=== PATIENT | male | born 1945 | race Caucasian/White ===

== ENCOUNTER 2022-01-24 09:56 | Day surgery (SDC) | payer MEDICARE, OTHER ==
[2022-01-21 10:12] VITALS: BMI 31.2
[2022-01-24 10:47] LABS: Basophils % (A) 0 %; Eosinophils # (A) 0.1 k/uL (0-0.7); Eosinophils % (A) 1 %; HCT 48.4 % (39.0-53.0); HGB 16.7 gm/dL (13.0-17.5); Lymphocytes # (A) 1.7 k/uL (1.0-4.8); Lymphocytes % (A) 33 %; MCH 33.2 pg (25.0-35.0); MCHC 34.6 g/dL (31.0-37.0); Mean Platelet Volume 7.5; Monocytes # (A) 0.4 k/uL (0-1.0); Monocytes % (A) 7 %; Neutrophils # (A) 2.8 k/uL (1.3-7.7); Neutrophils % (A) 55 %; Platelet Count 145 k/uL (150-450); RBC 5.04 m/uL (4.30-5.90); RDW 13.9 % (11.5-15.5); WBC 5.1 k/uL (3.8-10.6)
[2022-01-24 11:49] LABS: INR 3.6 (<1.2)
[2022-01-24 11:50] LABS: Calcium 8.6 mg/dL (8.4-10.2); Potassium 4.5 mmol/L (3.5-5.1)
[2022-01-24] MEDS ORDERED: LIDOCAINE 2% INJ 20 MG/ML (2 ML VIAL) ONE (11:53)
[2022-01-24] MEDS ORDERED: ATROPINE SULFATE 0.1 MG/ML 10ML SYRINGE ONE (11:53)
[2022-01-24] MEDS ORDERED: fentaNYL (PF) 50 MCG/ML 2 ML AMP ONE (11:53)
[2022-01-24] MEDS ORDERED: SUCCINYLCHOLINE CHLORIDE VIAL 200 MG/10 ML VIAL IV ONE (11:53)
[2022-01-24] MEDS ORDERED: HEPARIN SODIUM,PORCINE 10,000 UNIT/ML 1 ML VIAL ONE (11:53)
[2022-01-24] MEDS ORDERED: PROPOFOL 10 MG/ML 20 ML VIAL IV ONE (11:53)
[2022-01-24 11:59] LABS: Prothrombin Time 36.3 sec (9.0-12.0)
[2022-01-24] MEDS ORDERED: SODIUM CHLORIDE 0.9% 1,000 ML IV SCH ×2 (11:59→22:00)
[2022-01-24] MEDS ORDERED: IV FLUID CONTINUATION 1,000 ML IV ONE (12:17)
[2022-01-24] MEDS ORDERED: HEPARIN SOD,PORK IN 0.45% NACL 25,000 UNIT in 0.45% NACL 1 250ML.BAG IV ONE (12:20)
--- NOTE | 2022-01-24 12:25 | P.HPCAR ---
History of Present Illness This is Dr. Cortes dictating an H/P on this patient The patient was interviewed and examined IMPRESSION / ASSESSMENT: Persistent atrial fibrillation, symptomatic Failed multiple cardioversions and flecainide Underlying sick sinus syndrome first-degree AV block and intolerance to beta blockers Hypertension Today his creatinine is 1.0 PLAN: A. fib ablation with pulmonary vein isolation and left atrial roof line Continue anticoagulation Back down on flecainide 100 mg twice daily HPI Patient continues to have atrial fibrillation. He's had a few for 25 years Initially these episodes of be triggered by exercise He has a history of hypertension for 3 years but is well controlled He complains of palpitations during atrial fibrillation He has posterior mitral prolapse but with normal left atrial size normal LV function Mrs. this does not show any evidence for atrial fibrillation He is failed flecainide 115 g twice daily He has underlying sick sinus syndrome and intolerance to beta blockers ROS: No fever chills or rigors, no cough, phlegm or expectoration, no nausea, vomiting or diarrhea, no hematuria, dysuria, no musculoskeletal complaints, no strokes or seizures, no skin lesions. EXAMINATION: REVIEW OF LABS, ECG & MEDICAL DATA sodium 140 potassium 4.5 BUN 18 and creatinine 1.0 White count 5.1 hematocrit 48 Platelet count 145,000 INR 3.6 Past Medical History Past Medical History: Atrial Fibrillation, Cancer, Hypertension, Prostate Disorder, Sleep Apnea/CPAP/BIPAP Additional Past Medical History / Comment(s): BASAL CELL SKIN CANCER, NEW DIAGNOSIS OF SLEEP APNEA-WAITING FOR MACHINE., SEE CARDIOLOGY H & P. History of Any Multi-Drug Resistant Organisms: None Reported Past Surgical History: Prostate Surgery Additional Past Surgical History / Comment(s): TURP, BASAL CELL CANCER X2, CARDIOVERSION X5. Past Anesthesia/Blood Transfusion Reactions: No Reported Reaction Past Psychological History: No Psychological Hx Reported Smoking Status: Never smoker Past Alcohol Use History: Occasional Past Drug Use History: None Reported - Past Family History Father Family Medical History: AFIB Additional Family Medical History / Comment(s): PACEMAKER Mother Family Medical History: AFIB Results 01/24/22 10:28 01/24/22 11:15 Coagulation 01/24/22 Range/Units 11:15 PT 36.3 H (9.0-12.0) sec CBC 01/24/22 Range/Units 10:28 WBC 5.1 (3.8-10.6) k/uL RBC 5.04 (4.30-5.90) m/uL Hgb 16.7 (13.0-17.5) gm/dL Hct 48.4 (39.0-53.0) % Plt Count 145 L (150-450) k/uL Comprehensive Metabolic Panel 01/24/22 Range/Units 11:15 Sodium 140 (137-145) mmol/L Potassium 4.5 (3.5-5.1) mmol/L Chloride 110 H (98-107) mmol/L Carbon Dioxide 22 (22-30) mmol/L BUN 18 (9-20) mg/dL Creatinine 0.99 (0.66-1.25) mg/dL Glucose 101 H (74-99) mg/dL Calcium 8.6 (8.4-10.2) mg/dL Current Medications Generic Name Dose Route Start Last Admin Trade Name Freq PRN Reason Stop Dose Admin Sodium Chloride 1,000 mls @ 20 mls/hr 01/24/22 11:59 Saline 0.9% IV 02/23/22 12:00 .Q24H JOSE 01/24/22 10:28 01/24/22 11:15
[2022-01-24] MEDS ORDERED: LIDOCAINE 1% PF 10 MG/ML (5 ML AMP) SQ ONE (12:38)
[2022-01-24] MEDS ORDERED: IOPAMIDOL-370 100ML BTL INJ ONE (14:17)
[2022-01-24] MEDS ORDERED: ACETAMINOPHEN TAB 325 MG TAB PO PRN (14:46)
--- NOTE | 2022-01-24 15:02 | P.PRLE ---
RE: DeepaliNicko RE: WhitkrishnaNicko Dear Mckinley Maharaj underwent an A. fib ablation with pulmonary vein isolation of all 4 pulmonary veins as well as linear ablation of the LA roof. His transthoracic 2-D echo suggested a fairly normal size left atrium but intracardiac echo revealed an enlarged left atrium. The left atrial dimension from the fossa ovalis to the left pulmonary veins measures at around 58.6 mm On flecainide, he had relatively organized atrial activity but with a very prolonged HV interval of 90 ms At the end of the procedure he required electrical cardioversion to bring him back into normal rhythm He was quite bradycardic postprocedure His creatinine was 0.99 At this time I would recommend #1 continuation of anticoagulation. His INR today was 3.6 but he had no bleeding issues through the procedure #2 Discontinuation of flecainide completely #3 discontinuation of beta blockers #4 continuation of amlodipine He will see you next week for PT/INR check and a follow-up Holter monitor If in the future (beyond 3-4 months), he has recurrence of atrial fibrillation then extrapulmonary foci of AF will be sought The other alternative is to treat him with dofetilide since his creatinine is in the normal range I would observe him for the next 3-4 months Thank you for entrusting me with the care of the patient Warm regards Sincerely Pillo Cortes
--- NOTE | 2022-01-24 15:15 | P.EPPROC ---
- EP Procedure Note Electrophysiology Procedure Note: PROCEDURE A. fib ablation DIAGNOSIS Persistent Atrial fibrillation, symptomatic, refractory to therapy RESULT No left atrial appendage mass seen on intracardiac echo, Thick Fossa ovalis enlarged left atrium, LA dimension from fossa ovalis to left-sided veins was 58.6 mm Successful A. fib ablation/pulmonary vein isolation of all veins using cryo- ablation Successful left atrial roof ablation, linear Complete entrance block in all 4 veins confirmed No evidence for phrenic nerve injury Esophageal deflection YES Electrical cardioversion with a synchronized shock across the chest Lung postconversion pauses and sinus bradycardia, on flecainide and atenolol PROCEDURE DETAILS Patient was brought to the EP lab in a fasting state after obtaining written informed consent. Procedure performed under general anesthesia Esophagus was intubated. Esophageal temperature monitoring with circa catheter. Esophageal deflection with an endoscope to avoid hypothermia of the esophagus. After initial muscle relaxant use, muscle relaxants were not given thereafter in order to assess phrenic nerve during procedure. Patient prepped and draped as per protocol Cryo ablation-set up with standard preparation of the cryoablation tools done. Femoral Venous access obtained on the right and left groins and sheaths placed Diagnostic catheters for the high right atrium, phrenic nerve stimulation and pacing, His bundle, coronary sinus placed Intracardiac echo catheter placed. Long sheath placed in the right atrium Left and right transseptal catheterization performed under intracardiac echo guidance. Intravenous heparin with aCT above 300 Later, catheter positioning and balloon positioning in the left atrium and pulmonary veins, under intracardiac echo guidance Diagnostic EP study with coronary sinus pacing and recording Baseline measurements: Patient was in A. fib with a started study. HV interval 91 ms. In sinus rhythm AH interval 125 ms Coronary sinus catheter revealed a relatively organized atrial fibrillation on flecainide 150 g twice daily Transseptal catheterization performed RA pressure 14/8/11 LA pressure 17/9/12 Transseptal catheterization performed with standard sheath. The fossa ovalis was quite thick. A transseptal needle was used. However passage of a standard 8.5 mm sheath/dilated complex was difficult Serial dilation was performed Then over an advantage via the prior sheath was placed in the left atrium The cryoablation sheath was then placed with an over the wire exchange without any acute complications. The cryoablation balloon was placed in the office of each pulmonary vein and all 4 pulmonary veins were isolated. IV dye was injected to confirm occlusion. Goal: achieve complete occlusion of the pulmonary vein, achieve -30 degrees C at 30 seconds and achieve -40 degrees C at 60 seconds and a time to effect of less than 60 seconds. If not, the balloon was repositioned to obtain this result After completion of Cryoblation with durations from 180-240 seconds, entrance block was confirmed with the Attain circular catheter in a roving fashion around the antrum of the pulmonary veins Large left superior pulmonary vein that required segmental isolation with multiple lesions Phrenic nerve pacing was performed from the SVC, right innominate vein area and diaphragm voltage was monitored. Diaphragmatic contractions were also monitored manually for strength of contraction. At the end of the procedure the Achieve catheter was once again used to check for entrance block Phrenic nerve stimulation was performed to confirm diaphragmatic stimulation the end of the procedure The patient remained in organized atrial fibrillation despite complete antral isolation of the pulmonary veins and the left atrial roof line Electrical cardioversion was performed He was quite bradycardic post cardioversion and of the lung postconversion pause IV atropine was infused for a full 1 mg He was observed for some time before extubation Post extubation his heart rate was in the high 40s, so Cine fluoroscopy was performed at the very end of the procedure to confirm movement of both diaphragms with inspiration and expiration At the end of the procedure the patient was extubated Venous sheaths were removed and hemostasis assured with a closure device PROCEDURES PERFORMED Diagnostic EP study CS pacing and recording Left and right transseptal catheterization Catheter the mapping of the tachycardia Intracardiac echocardiography Pulmonary vein isolation with transseptal and comprehensive EPS, 11273 Drug infusion, +[id number] Left atrial roof line, +[id number] Electrical cardioversion with a synchronized shock across the chest [id number]
--- NOTE | 2022-01-24 15:18 | P.PCN ---
Preoperative Diagnosis: Extended procedure duration Transseptal catheterization was difficult Crossing the fossa ovalis difficult This is a thick fossa ovalis that required repeated dilation with multiple catheters and sheaths The right superior pulmonary vein was very large and subsegmental isolation have to be performed at the antral level to complete the isolation process The above 2 along with a dilated left atrium of at least 5.8 mm resulted in an extended procedure duration
[2022-01-24 17:01] VITALS: RESP 18
[2022-01-24] MEDS ORDERED: ATROPINE SULFATE 0.1 MG/ML 10ML SYRINGE IV STA ×2 (17:56→21:48)
[2022-01-24] MEDS ORDERED: ACETAMINOPHEN IV (For NPO) 1,000 MG in EMPTY BAG 1 BAG IVPB ONE (18:00)
[2022-01-24] MEDS ORDERED: WARFARIN 2.5 MG TAB PO ONE (18:00)
[2022-01-24] MEDS ORDERED: DOPamine DRIP 800 MG in DEXTROSE/WATER 1 250ML.BAG IV SCH (18:30)
[2022-01-24] MEDS ORDERED: DEXTROSE/WATER 1 250ML.BAG with DOPamine DRIP 800 MG IV SCH (21:00)
[2022-01-24] MEDS ORDERED: SODIUM CHLORIDE 0.9% 500 ML 250 ML IV ONE (21:48)
[2022-01-25] MEDS ORDERED: ATORVASTATIN 80 MG TAB PO SCH (09:00)
[2022-01-25] MEDS ORDERED: amLODIPine 5 MG TAB PO SCH (09:00)
[2022-01-25 09:16] LABS: INR 4.1 (<1.2); Prothrombin Time 40.8 sec (9.0-12.0)
[2022-01-25 10:38] VITALS: BP 121/60; PULSE 62; TEMP 98.1
--- NOTE | 2022-01-25 15:22 | P.DS ---
Providers Attending physician: Pillo Cortes Primary care physician: Enio Cobb Assessment: Patient is doing fairly well No chest discomfort dizziness lightheadedness or palpitations Yesterday after his A. fib ablation he was in sinus bradycardia in the mid 30s with no symptoms Blood pressure was normal We tried to give him very low dose dopamine of 2 mics but he couldn't tolerate it and this was discontinued He did very well thereafter and his heart rates improved Overnight he was having short paroxysms of atrial tachycardia This morning his twelve-lead EKG shows a very slow atrial tachycardia with an atrial cycle length of about 500 ms with grouped beating Blood pressure 130/68 mmHg pulse rate in the 60s to 80s afebrile Breath sounds are equal bilaterally no rhonchi no crackles Heart sounds irregular with normal no murmurs. Impression Persistent atrial fibrillation status post antral isolation of the pulmonary veins as well as linear ablation in the left atrial roof Status post electrical cardioversion Intracardiac echo revealed a left atrial dimension of 58.6 mm HV interval was prolonged at 91 ms on flecainide 150 mg twice daily Postconversion pause and severe bradycardia but minimally symptomatic Improvement in heart rate subsequently and paroxysms of atrial tachycardia INR of 3.6 and today the INR is 4.1, hemoglobin stable Creatinine 0.99, potassium normal at 4.5 Suggest Discontinue beta blockers Avoid flecainide given the prolongation of the HV interval Take Coumadin 10 mg by mouth daily for 5 days a week and 5 mg on Mondays and check INR at Dr. Cobb's office within one week Keep INR around 2.5-3 post ablation I expect that he will have bursts of atrial tachycardia with a fairly controlled ventricular response for the next 6-12 weeks I would not recommend any atrial tachycardia ablation for the next 3 months If needed electrical cardioversion may be performed The only antiarrhythmic drug that I would recommend would be dofetilide This would not result in any sinus bradycardia normal did have any effect on the HV interval If he continues to have recurrent slow atrial tachycardia beyond 2-3 months then an atrial tachycardia ablation should be considered thereafter Conservative treatment until then Follow-up with Dr. Avila and Dr. Cobb Patient Condition at Discharge: Stable Plan - Discharge Summary Discharge Rx Participant: No New Discharge Prescriptions: New Warfarin [Coumadin] 5 mg PO DAILY 30 Days #10 tab Warfarin [Coumadin] 10 mg PO DAILY 30 Days #30 tab Discontinued Warfarin [Coumadin] 10 mg PO DAILY atenoloL [Tenormin] 25 mg PO DAILY Flecainide Acetate [Tambocor] 150 mg PO BID No Action Ubidecarenone [Co Q-10] 200 mg PO DAILY Simvastatin [Zocor] 40 mg PO DAILY Multivit-Min/FA/Lycopen/Lutein [Centrum Silver Men Tablet] 1 each PO DAILY Glucosamine Sulfate 1,500 mg PO DAILY Cyanocobalamin (Vitamin B-12) [Vitamin B-12] 2,500 mcg PO DAILY amLODIPine [Norvasc] 5 mg PO DAILY Discharge Medication List Cyanocobalamin (Vitamin B-12) [Vitamin B-12] 2,500 mcg PO DAILY 01/21/22 [History] Glucosamine Sulfate 1,500 mg PO DAILY 01/21/22 [History] Multivit-Min/FA/Lycopen/Lutein [Centrum Silver Men Tablet] 1 each PO DAILY 01/21/22 [History] Simvastatin [Zocor] 40 mg PO DAILY 01/21/22 [History] Ubidecarenone [Co Q-10] 200 mg PO DAILY 01/21/22 [History] amLODIPine [Norvasc] 5 mg PO DAILY 01/21/22 [History] Warfarin [Coumadin] 5 mg PO DAILY 30 Days #10 tab 01/25/22 [Rx] Warfarin [Coumadin] 10 mg PO DAILY 30 Days #30 tab 01/25/22 [Rx] Follow up Appointment(s)/Referral(s): Mckinley Avila DO [REFERRING] - 1 Week (Follow-up within one week for a 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 Keep access sites dry for 2 days. 2. No heavy lifting or straining for 2 days. 3. Avoid bending the hips repeatedly for 2 days. 4. You may go up and down stairs slowly Call if the following is noted 1. Bleeding, increasing swelling or pain at the access sites. 2. Increasing chest discomfort, especially upon taking a deep breath. 3. Increasing shortness of breath, at rest or with exertion. 4. Undue cough / phlegm 5. Difficulty or pain while swallowing. 6. Pain or change in color in the extremities. 7. Fever, chills, rigors. 8. Increasing headache or neurologic symptoms. 9. Dizziness, fainting, palpitations Resume Coumadin and amlodipine Stop flecainide completely Stop atenolol completely PT/INR check in 1 week Groin check in 1 week Discharge Disposition: HOME SELF-CARE
[2022-01-25] MEDS ORDERED: WARFARIN 0.5 MG TAB PO ONE (18:00)
== END 2022-01-25 14:07 | disposition home or self-care (01) ==
LOC: CATHEP 09:56 → 6NMEDSUR 14:27 → 3SCARD 20:42 → CATHEP 01-25 14:07
PROVIDERS: ATTEND Internal Medicine Clinical Cardiac Electrophysiology
DX: I34.1 Nonrheumatic mitral (valve) prolapse (principal); I10 Essential (primary) hypertension; G47.30 Sleep apnea, unspecified; Z79.01 Long term (current) use of anticoagulants; Z79.899 Other long term (current) drug therapy; Z85.828 Personal history of other malignant neoplasm of skin; I44.0 Atrioventricular block, first degree; I49.5 Sick sinus syndrome; Z90.79 Acquired absence of other genital organ(s)
CPT/HCPCS: 92960; 93623; 93656; 80048; 85025; 85610 ×2; C1894 ×2; C1769 ×5; C1760 ×2; C1730 ×2; C1759; C1893; C1733; C1766; J2001; J0461; J0131; Q9967; J1644; J1265